=== PATIENT | female | born 1965 | race Caucasian/White ===

== ENCOUNTER → 2017-04-14 | Outpatient (CLI) | payer OTHER ==
--- NOTE | 2017-04-14 10:54 | Diagnostic Imaging Report ---
MRI of the right shoulder without contrast. History: Shoulder pain. Rotator cuff tear. Comparison: None Technique: Coronal PD FS, sagital PD FS, and axial PD and PD FS. Findings: Rotator cuff: There is rotator cuff tendinosis with a small full-thickness tear involving the anterior fibers of the supraspinatus tendon at the humeral insertion site. This is best seen on sagittal series 5 image 3 and 4. There is minimal retraction of the torn fibers and mild supraspinatus muscle atrophy. Additionally, there is infraspinatus and subscapularis tendinosis. The teres minor tendon is intact. Osseous acromion complex: There is a type II acromion with mild lateral downsloping. There is mild degenerative arthrosis at the acromioclavicular joint with mild narrowing of the supraspinatus tendon outlet. There is mild subacromial/subdeltoid bursitis. Glenohumeral joint: There is degeneration and fraying of the labrum. The articular cartilage surfaces are intact. The humeral head is well-seated in the fossa. Biceps tendon: The biceps tendon is intact. Other findings: Negative for muscle denervation or osseous fracture. Impression: Rotator cuff tendinosis with small full-thickness tear involving the anterior fibers of the supraspinatus tendon at the humeral insertion site. 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 Signed by: Dr. Marcin Jung M.D. on 04/14/2017 10:50 AM
== END ==
LOC: MRI 09:20
PROVIDERS: ATTEND Family Medicine
DX: S46.011D Strain of muscle(s) and tendon(s) of the rotator cuff of right shoulder, subsequent encounter (principal)

== ENCOUNTER → 2024-11-01 | Outpatient (REF) | payer BC | LOC: MAMMO 10:03 | PROVIDERS: ATTEND Family Medicine | DX: Z12.31 Encounter for screening mammogram for malignant neoplasm of breast (principal) | CPT/HCPCS: 77067 ==